=== PATIENT | male | born 2000 | race African-American/Black ===

== ENCOUNTER 2021-07-12 20:25 | Emergency (ER) | payer MEDICAID ==
[~2021-07-12] VITALS: Ht 170.2 cm; Wt 63.4 kg
[2021-07-12 21:22] VITALS: BP 120/75
[2021-07-12] MEDS ORDERED: GUAIFENESIN 600MG ER TABLET PO ONE (21:45)
[2021-07-12] MEDS ORDERED: GUAI600T26 MT (21:47)
[2021-07-12] MEDS ORDERED: ACET-2708 MT (21:47)
[2021-07-12] MEDS ORDERED: AMOX-494 MT (21:47)
[2021-07-12] MEDS ORDERED: ACETAMINOPHEN 325MG TABLET PO ONE (22:00)
== END 2021-07-12 23:51 | disposition home or self-care (01) ==
LOC: ER 20:25
DX: J32.9 Chronic sinusitis, unspecified (principal); Z20.822 Contact with and (suspected) exposure to COVID-19
CPT/HCPCS: 87426; 99283; C9803